=== PATIENT | female | born 1925 | race Hispanic/Latino ===

== ENCOUNTER 2017-02-09 06:15 | Day surgery (SDC) | payer MEDICARE, OTHER ==
[2017-01-07 11:24] VITALS: BMI 23.8
[2017-02-09 06:58] VITALS: RESP 18
[2017-02-09] MEDS ORDERED: Bupivacaine 0.5% Inj(30mL) ONE (08:35)
[2017-02-09] MEDS ORDERED: Lidocaine 1% Inj (20ml) ONE (08:35)
[2017-02-09] MEDS ORDERED: Propofol 10 mg/ml Inj (20 ML) ONE (08:57)
[2017-02-09] MEDS ORDERED: Sevoflurane - Inhalation Anesthetic Liq (250 ml) ONE (09:22)
[2017-02-09] MEDS ORDERED: Lactated Ringer's 1,000 ML IV SCH (10:14)
[2017-02-09] MEDS ORDERED: HYDROmorphone 0.5 mg/0.5 ml ISec IVP PRN (10:14)
--- NOTE | 2017-02-09 10:20 | PCM.SURG1 ---
Surgeon's Initial Post Op Note - Surgeon's Notes Surgeon: Dr. Escobar Applications Sales Consultant: Dr. Mendoza, PGY-1 Type of Anesthesia: General LMA Anesthesia Administered By: Dr. Bourne Pre-Operative Diagnosis: Right inguinal hernia Operative Findings: See operative report Post-Operative Diagnosis: Same Operation Performed: Right inguinal hernia repair with mesh Specimen/Specimens Removed: hernia sac Estimated Blood Loss: EBL {In ML}: 5 Blood Products Given: N/A Drains Used: No Drains Post-Op Condition: Good Date of Surgery/Procedure: 02/09/17 Time of Surgery/Procedure: 10:19
[2017-02-09] MEDS ORDERED: Oxycodone/Acetaminophen 5/325 mg Tab PO PRN (10:21)
[2017-02-09] MEDS ORDERED: HYDROmorphone 0.5 mg/0.5 ml ISec ONE ×2 (10:42→10:59)
[2017-02-09] MEDS ORDERED: HYDROmorphone 0.5 mg/0.5 ml ISec IVP ONE (10:47)
[2017-02-09 14:53] VITALS: O2SAT 98
[2017-02-09 16:08] VITALS: BP 152/70; PULSE 53; TEMP 98
--- NOTE | 2017-02-15 16:18 | OP ---
PROCEDURE DATE: 02/09/2017 SURGEON: Matthias Escobar MD SHIPPING WEIGHER: ____ DO Kelly, PGY-2 ROLL FORMING SUPERVISOR: Dr. Bourne ANESTHESIA: General -- LMA -- Marcaine 0.5-16 mL PREOPERATIVE DIAGNOSES: 1. Right reducible indirect inguinal hernia. 2. Hypertension. 3. Vertigo. POSTOPERATIVE DIAGNOSES: 1. Right reducible indirect inguinal hernia. 2. Hypertension. 3. Vertigo. PROCEDURE: Right inguinal herniorrhaphy with Marlex mesh. OPERATIVE INDICATIONS: The patient is an 89-year-old female who noted the onset of a painf ul right groin bulge after lifting a heavy object. The patient has finally undergone cardiac evaluat ion and has been cleared for the procedure by Dr. Edmonds and is still symptomatic and has the hernia intermittently bulging out and causing pain. Risks, benefits and alternatives with their anticipated outcomes were discussed with the patient and she signs the informed consent. OPERATIVE NOTE: The patient is brought to the operating room from the same day holding area where th e site has been marked. She undergoes timeout procedure and is identified by her wrist band and is p laced on the table in a supine manner. Following the induction of general anesthesia and the insertion of an intralaryngeal mask, the right groin is prepped with Hibiclens and the patient is aseptically draped. Transverse incision is made over the right inguinal canal infiltrating the same with the bupivacaine at the time of the incision and dissection is carried on through to the subcutaneous tissues through the superficial fascia. Hemostasis is contained with electrocoagulating cautery and the external obl ique is incised along the direction of the fibers and the inguinal canal is now examined and a large fatty containing structure is encountered coming from the internal ring down the canal to the pubic t ubercle. This is transected at the peritoneal reflection with a Cindy clamp and 2-0 chromic catgut l igature. The specimen is then submitted to pathology in formalin for permanent section analysis. The inguinal brice is closed in a Bassini type repair with 2-0 Prolene suture and the inguinal karolina oring is reinforced with Marlex mesh secured with the Prolene suture. The external oblique is now cl osed with 2-0 Polysorb continuous suture and the superficial fascia and skin closed with 3-0 subcutic ular Polysorb and the skin closed with a subcuticular 4-0 Biosyn suture and Dermabond adhesive. The deeper layers are infiltrated at this point including the ilioinguinal nerve at the anterior superior iliac spine (TEP) and at the pubic tubercle to block the genitofemoral nerve. Sponge, instrument and suture count were verified as correct at the end of the procedure. Estimated blood loss during this procedure was less than 5 mL of blood. This dictation will be electronically signed without being read. The surgical scheduler was present throughout from the beginning to the end and performed a significa nt portion of the procedure and was very essential in exposing and assisting in the dissection. Matthias Escobar MD cc: [id number] TT: 02/15/2017 16:17:23 sn
== END 2017-02-09 15:50 | disposition home or self-care (01) ==
LOC: SDS 06:15
PROVIDERS: ATTEND Surgery
DX: K40.90 Unilateral inguinal hernia, without obstruction or gangrene, not specified as recurrent (principal); I10 Essential (primary) hypertension; R42 Dizziness and giddiness
CPT/HCPCS: 49505; 88302; C1781; J0690; J1170; J2704; J3010; J7120 ×2